=== PATIENT | female | born 1980 | race Caucasian/White ===

== ENCOUNTER 2017-10-05 13:09 | Inpatient (IN) | payer OTHER ==
[~2017-10-05] VITALS: Ht 172.7 cm; Wt 81.0 kg
[2017-10-05] VITALS (90 sets, daily range): BP systolic 104–152; BP diastolic 66–89; PULSE 47–116; RESP 18–20; TEMP 97.9–98.9
[2017-10-05] MEDS ORDERED: LACTATED RINGER'S 1000 ML INJ 1,000 ML IV SCH (13:39)
[2017-10-05] MEDS ORDERED: LACTATED RINGER'S 1000 ML INJ 1,000 ML IV PRN (13:39)
[2017-10-05] MEDS ORDERED: LIDOCAINE HCL 1% 50 ML VIAL INFIL PRN (13:45)
[2017-10-05] MEDS ORDERED: MINERAL OIL 10 ML VIAL TOPICAL PRN (13:45)
[2017-10-05] MEDS ORDERED: OXYTOCIN 30 UNITS-500ML PREMIX 500 ML IV ONE (13:45)
[2017-10-05] MEDS ORDERED: SODIUM CHLORID 0.9% 500 ML INJ 500 ML IV PRN (13:45)
[2017-10-05] MEDS ORDERED: OXYTOCIN 30 UNITS-500ML PREMIX 500 ML IV SCH ×2 (13:45→20:45)
[2017-10-05] MEDS ORDERED: LIDOCAINE HCL 1% 50 ML VIAL I-DERMAL PRN (13:45)
[2017-10-05] MEDS ORDERED: SODIUM CHLOR 0.9% 1000 ML INJ 1,000 ML IV PRN (13:59)
[2017-10-05] MEDS ORDERED: PENICILLIN G POTASSIUM INJ 5,000,000 UNITS in SODIUM CHLORIDE 0.9% INJ 100 ML IV ONE (14:00)
[2017-10-05 14:22] LABS: BACTERIA, URINE RARE /hpf; BILIRUBIN, URINE NEG (NEG); BLOOD, URINE SMALL (NEG); GLUCOSE,URINE NEG (NEG); KETONE, URINE NEG (NEG); MUCUS URINE FEW /lpf (OCC); NITRITE,URINE NEG (NEG); PH, URINE 6.5 (5.0-8.5); SQUAMOUS EPITHELIAL CELL URINE 2 /hpf (0-5); URINE COLOR YELLOW (YELLW/STRAW); URINE LEUKOCYTE ESTERASE NEG (NEG)
--- NOTE | 2017-10-05 14:22 | HHI.HP ---
HPI Chief Complaint labor Date Seen: Oct 05, 2017 Travel History International Travel<30 Days: No Contact w/Intl Traveler<30Days: No Known Affected Area: No History of Present Illness HPI 37 yo with iup at 38w6 d being admitted for labor. SVE in office today /-2 with bbow. She was 2 cm last week. She is having irreg ctx. + FM. Neg vb or lof. Weeks Gestation: 38 Para: 2 : 3 History Past Medical History Narrative Medical HPV + Obstetric History Obstetric History G1 07/2005 M 42 wk, 9lb 7oz G2 02/2009 41 F wk, 7lb 10 oz Both pregnancies uncomplicated Past Surgical History Narrative Surgical breast augmentation Family History Family History: Negative Social History Alcohol Use: No Tobacco Use: No Substance Abuse: No Allergies-Medications (Allergen,Severity, Reaction): Coded Allergies: No Known Allergies (Verified Allergy, Unknown, 10/05/17) Review of Systems General / Constitutional: No: Fever, Weight Gain, Chills, Other Eyes: No: Diploplia, Blurred Vision, Visual changes, Pain, Photophobia HENT: No: Headaches, Vertigo, Lightheadedness Cardiovascular: No: Irregular Rhythm, Chest Pain or Discomfort, Palpitations, Tachycardia, Syncope, Varicosities, Edema, Cyanosis Respiratory: No: Cough, Short of Breath, Other Gastrointestinal: No: Nausea, Vomiting, Diarrhea Genitourinary: No: Decreased Urinary Output, Oliguria Musculoskeletal: No: Limited ROM, Weakness, Cramping, Edema, Pain Skin: No Rash, No Itching, No Dryness, No Lumps, No Change in Pigmentation, No Change in Nails, No Alopecia, No Lesions Neurologic: No: Weakness, Dizziness, Syncope, Focal Abnormalities, Coordination Problem, Headache, Slurred Speech, Seizures Psychiatric: No: Depression, Suicidal Ideations, Homicidal Ideation Endocrine: No: Heat Intolerance, Cold Intolerance, Polydipsia, Polyuria, Other Physical Exam Vital Signs Date Time Temp Pulse Resp B/P (MAP) Pulse Ox O2 Delivery O2 Flow Rate FiO2 10/05/17 13:45 75 10/05/17 13:40 74 10/05/17 13:39 73 134/83 (100) Narrative GENERAL: Well-nourished, well-developed patient. SKIN: Warm and dry. HEAD: Normocephalic and atraumatic. EYES: No scleral icterus. No injection or drainage. ENT: No nasal drainage noted. Mucous membranes pink. Airway patent. NECK: Supple, trachea midline. No JVD. CARDIOVASCULAR: Regular rate and rhythm without murmurs, gallops, or rubs. RESPIRATORY: Breath sounds equal bilaterally. No accessory muscle use.. ABDOMEN/GI: Abdomen soft, non-tender, bowel sounds present, no rebound, no guarding Gravid to 37 weeks size Fundal Height: [-] GENITOURINARY: External Genitalia: intact and normal in appearance BUS glands: [-] Cervix:4/80/-2 bbow] Presentation:[facility] Membranes: [intact Uterine Contractions: [-] FHT's: Category:I EXTREMITIES: No cyanosis or edema. BACK: Nontender without obvious deformity. No CVA tenderness. NEUROLOGICAL: Awake and alert. Motor and sensory grossly within normal limits. Five out of 5 muscle strength in all muscle groups. Normal speech. Caprini VTE Risk Assessment Caprini VTE Risk Assessment: No/Low Risk (score <= 1) Caprini Risk Assessment Model Point Value = 1 Point Value = 2 Point Value = 3 Point Value = 5 Age 41-60 Minor surgery BMI > 25 kg/m2 Swollen legs Varicose veins or History of unexplained or recurrent spontaneous Oral contraceptives or hormone replacement Sepsis (< 1 month) Serious lung disease, including pneumonia (< 1 month) Abnormal pulmonary function Acute myocardial infarction Congestive heart failure (< 1 month) History of inflammatory bowel disease Medical patient at bed rest Age 61-74 Arthroscopic surgery Major open surgery (> 45 min) Laparoscopic surgery (> 45 min) Malignancy Confined to bed (> 72 hours) Immobilizing plaster cast Central venous access Age >= 75 History of VTE Family history of VTE Factor V Leiden Prothrombin [id number] Lupus anticoagulant Anticardiolipin antibodies Elevated serum homocysteine Heparin-induced thrombocytopenia Other congenital or acquired thrombophilia Stroke (< 1 month) Elective arthroplasty Hip, pelvis, or leg fracture Acute spinal cord injury (< 1 month) Prophylaxis Regimen Total Risk Factor Score Risk Level Prophylaxis Regimen 0-1 Low Early ambulation 2 Moderate Order ONE of the following: *Sequential Compression Device (SCD) *Heparin 5000 units SQ BID 3-4 Higher Order ONE of the following medications: *Heparin 5000 units SQ TID *Enoxaparin/Lovenox 40 mg SQ daily (WT < 150 kg, CrCl > 30 mL/min) *Enoxaparin/Lovenox 30 mg SQ daily (WT < 150 kg, CrCl > 10-29 mL/min) *Enoxaparin/Lovenox 30 mg SQ BID (WT < 150 kg, CrCl > 30 mL/min) AND/OR *Sequential Compression Device (SCD) 5 or more Highest Order ONE of the following medications: *Heparin 5000 units SQ TID (Preferred with Epidurals) *Enoxaparin/Lovenox 40 mg SQ daily (WT < 150 kg, CrCl > 30 mL/min) *Enoxaparin/Lovenox 30 mg SQ daily (WT < 150 kg, CrCl > 10-29 mL/min) *Enoxaparin/Lovenox 30 mg SQ BID (WT < 150 kg, CrCl > 30 mL/min) AND *Sequential Compression Device (SCD) Data Data Vital Signs Reviewed: Yes Orders Orders Admit To Inpatient (10/05/17 ) Vital Signs (Adult) .Per protocol (10/05/17 13:39) Heart (10/05/17 13:39) Amnioinfusion (10/05/17 13:39) Urinary Catheter Management .ONCE (10/05/17 13:39) Lactated Ringer's 1000 Ml Inj (Lr 1000 M (10/05/17 13:39) Lactated Ringer's 1000 Ml Inj (Lr 1000 M (10/05/17 13:39) Sodium Chlorid 0.9% 500 Ml Inj (Ns 500 M (10/05/17 13:45) Sodium Chlor 0.9% 1000 Ml Inj (Ns 1000 M (10/05/17 13:59) Lidocaine 1% Inj (50 Ml) (Xylocaine 1% I (10/05/17 13:45) Fentanyl Inj (Fentanyl Inj) (10/05/17 13:45) Fentanyl Inj (Fentanyl Inj) (10/05/17 13:45) Penicillin G Potassium Inj (Pfizerpen-G (10/05/17 14:00) Complete Blood Count With Diff (10/05/17 13:39) Hold Clot (10/05/17 13:39) Abo/Rh Blood Type (10/05/17 13:39) Urinalysis - C+S If Indicated (10/05/17 13:39) Drug Screen, Random Urine (10/05/17 13:39) Resp Oxygen Non Rebreathe Mask (10/05/17 ) ^ Epidural / Intrathecal Infus (10/05/17 13:39) Oxytocin 30 Units-500ml Premix (Pitocin (10/05/17 13:45) Lidocaine 1% Inj (50 Ml) (Xylocaine 1% I (10/05/17 13:45) Light Mineral Oil (Muri-Lube Oil) (10/05/17 13:45) Inpatient Certification (10/05/17 ) Specimen To Be Collected PRN (10/05/17 13:39) Specimen To Be Collected PRN (10/05/17 13:39) ^ Non Stress Test (10/05/17 13:39) Response To Medication .Post New Med Administration, Reaction (10/05/17 13:39) ^ Discontinue Medication (10/05/17 13:39) Oxytocin 30 Units-500ml Premix (Pitocin (10/05/17 13:45) Penicillin G Potassium Inj (Pfizerpen-G (10/05/17 18:00) Group B Strep: Positive Assessment/Plan Problem List: (1) Labor and delivery indication for care or intervention ICD Codes: O75.9 - Complication of labor and delivery, unspecified (2) AMA (advanced maternal age) multigravida 35+ ICD Codes: O09.529 - Supervision of elderly multigravida, unspecified trimester (3) GBS (group B Streptococcus carrier), +RV culture, currently ICD Codes: O99.820 - Streptococcus B carrier state complicating Assessment and Plan 37 yo with iup at 38w6d being admitted for augmentation of labor 1)labor - will augment with pit/arom as needed 2) GBS + pnc prophy 3) AMA- neg cfDNA, msAFP and anatomy u/s 4) Fetus- ceph, male, EFW 7.5-8 lb Deisi Boucher MD Oct 05, 2017 14:22
[2017-10-05 14:24] LABS: AUTOMATED NEUTROPHIL # 8.3 TH/MM3 (1.8-7.7); BASOPHIL % 0.2 % (0.0-2.0); EOSINOPHIL % 0.1 % (0.0-4.0); HEMATOCRIT 36.5 % (35.0-46.0); HEMOGLOBIN 12.7 GM/DL (11.6-15.3); MEAN CORPUSCULAR HEMOGLOBIN 32.3 PG (27.0-34.0); MEAN CORPUSCULAR HGB CONC 34.7 % (32.0-36.0); MEAN PLATELET VOLUME 9.8 FL (7.0-11.0); MONO % 5.8 % (0.0-8.0); MONOCYTE # 0.6 TH/MM3 (0-0.9); NEUT % 75.9 % (16.0-70.0); PLATELET COUNT 196 TH/MM3 (150-450); RED BLOOD COUNT 3.92 MIL/MM3 (4.00-5.30); RED CELL DISTRIBUTION WIDTH 13.1 % (11.6-17.2); WHITE BLOOD COUNT 10.9 TH/MM3 (4.0-11.0)
[2017-10-05] MEDS ORDERED: fentaNYL 2MCG-BUPIV 0.125% INJ 100 ML ONE (14:54)
[2017-10-05] MEDS ORDERED: ePHEDrine/NS 25 MG/5 ML SYRINGE ONE (14:55)
[2017-10-05] MEDS ORDERED: PREN29TA PO (15:59)
[2017-10-05] MEDS ORDERED: DIPHTH/TETANUS/ACEL PERTUSSIS (BOOSTER) 0.5 ML VIAL/PFS IM ONE (16:00)
[2017-10-05] MEDS ORDERED: DO NOT ADMINISTER ANTICOAGULANTS PRN (16:00)
[2017-10-05] MEDS ORDERED: fentaNYL 2MCG-BUPIV 0.125% 100 ML EPIDURAL SCH (16:00)
[2017-10-05] MEDS ORDERED: NO SYSTEM NARCOTICS PRN (16:00)
[2017-10-05] MEDS ORDERED: ePHEDrine/NS 25 MG/5 ML SYRINGE IV PUSH PRN (16:00)
[2017-10-05] MEDS ORDERED: MEASLES, MUMPS, RUBELLA VACCINE 0.5 ML VIAL SQ ONE (16:00)
[2017-10-05] MEDS ORDERED: ONDANSETRON HCL 4 MG/2 ML VIAL ONE (16:25)
[2017-10-05] MEDS ORDERED: ONDANSETRON HCL 4 MG/2 ML VIAL IV PUSH PRN (17:00)
[2017-10-05] MEDS ORDERED: PENICILLIN G POTASSIUM INJ 2,500,000 UNITS in SODIUM CHLORIDE 0.9% INJ 100 ML IV SCH (18:00)
--- NOTE | 2017-10-05 20:39 | PD.OB.DELI ---
Weeks gestation: 38 Gest age assessed date: Oct 05, 2017 Gest age assessed time: 11:30 Pt started active labor?: Yes Active labor start date: Oct 05, 2017 Active labor start time: 15:00 Medical induction of labor?: Yes Medical induction start date: Oct 05, 2017 Medical induction start time: 14:00 Artificial rupture of membrane: Yes Artificial ROM date: Oct 05, 2017 Artifical ROM time: 15:00 Anesthesia: Epidural Episiotomy: None Vaginal Delivery: Normal Presentation: Occiput anterior Nuchal Cord: None Delayed cord clamping (45 sec): Yes Infant: Male Delivery date: Oct 05, 2017 Delivery time: 20:22 One Minute : 8 Five Minute : 9 Placenta: Spontaneous delivery Laceration: No lacerations Estimated blood loss: 200 Anibal Martinez MD Oct 05, 2017 20:39
[2017-10-05] MEDS ORDERED: WITCH HAZEL 50%/GLYCERIN 12.5% 40 PAD JAR TOPICAL PRN (20:45)
[2017-10-05] MEDS ORDERED: SODIUM CHLORIDE 0.9% FLUSH 10 ML FLUSH IV FLUSH PRN (20:45)
[2017-10-05] MEDS ORDERED: DOCUSATE SODIUM 50 MG/SENNA 8.6 MG TAB PO PRN (20:45)
[2017-10-05] MEDS ORDERED: BENZOCAINE 20% TOPICAL SPRAY 60 ML CAN TOPICAL PRN (20:45)
[2017-10-05] MEDS ORDERED: ONDANSETRON ODT 4 MG TAB PO PRN (20:45)
[2017-10-05] MEDS ORDERED: ALUMINUM/MAGNESIUM/SIMETH 30 ML CUP PO PRN (20:45)
[2017-10-05] MEDS ORDERED: OXYTOCIN 10 UNIT/ML AMP XX PRN (20:45)
[2017-10-05] MEDS ORDERED: ZOLPIDEM TARTRATE 5 MG TAB PO PRN (20:45)
[2017-10-05] MEDS ORDERED: ACETAMINOPHEN 325 MG TAB PO PRN (20:45)
[2017-10-05] MEDS: SODIUM CHLORIDE 0.9% FLUSH 10 ML FLUSH IV FLUSH SCH (21:35)
[2017-10-06] MEDS: IBUPROFEN 800 MG TAB PO PRN ×3 (00:18→18:16)
--- NOTE | 2017-10-06 07:40 | HHI.OB ---
Subjective Post Day: 1 Remarks doing well, TPO no n/v, VB < menses, ready for d/c later today Objective Vitals/I&O Vital Signs Date Time Temp Pulse Resp B/P (MAP) Pulse Ox O2 Delivery O2 Flow Rate FiO2 10/05/17 22:30 98.9 52 20 126/75 (92) 10/05/17 21:16 47 129/74 (92) 10/05/17 21:04 18 10/05/17 21:03 97.9 10/05/17 21:01 56 137/82 (100) 10/05/17 21:00 18 10/05/17 20:45 65 18 127/79 (95) 10/05/17 20:30 69 133/72 (92) 10/05/17 20:28 18 10/05/17 20:27 76 124/66 (85) 10/05/17 20:15 70 10/05/17 20:10 76 10/05/17 20:05 62 10/05/17 20:00 63 10/05/17 20:00 63 10/05/17 19:55 65 10/05/17 19:50 64 10/05/17 19:45 73 10/05/17 19:40 64 10/05/17 19:35 60 10/05/17 19:30 63 10/05/17 19:30 61 127/84 (98) 10/05/17 19:25 60 10/05/17 19:20 64 10/05/17 19:15 65 10/05/17 19:10 65 10/05/17 19:05 64 10/05/17 19:00 61 128/81 (97) 10/05/17 19:00 63 10/05/17 18:55 58 10/05/17 18:50 60 10/05/17 18:45 61 10/05/17 18:43 98.1 18 10/05/17 18:40 87 10/05/17 18:35 62 10/05/17 18:31 58 121/86 (98) 10/05/17 18:30 65 10/05/17 18:10 61 10/05/17 18:05 57 10/05/17 18:00 56 10/05/17 18:00 52 131/82 (98) 10/05/17 17:31 59 126/81 (96) 10/05/17 17:30 59 10/05/17 17:25 57 10/05/17 17:20 61 10/05/17 17:15 72 10/05/17 17:10 67 10/05/17 17:05 60 10/05/17 17:00 64 121/79 (93) 10/05/17 17:00 55 10/05/17 16:55 63 10/05/17 16:50 56 10/05/17 16:45 63 10/05/17 16:40 61 10/05/17 16:35 57 10/05/17 16:30 65 113/73 (86) 10/05/17 16:30 61 10/05/17 16:25 68 10/05/17 16:20 79 120/68 (85) 10/05/17 16:20 80 10/05/17 16:15 67 125/77 (93) 10/05/17 16:15 63 10/05/17 16:10 67 10/05/17 16:10 68 10/05/17 16:10 124/79 (94) 10/05/17 16:05 60 118/76 (90) 10/05/17 16:05 63 10/05/17 16:00 61 114/74 (87) 10/05/17 16:00 60 10/05/17 15:55 62 117/73 (88) 10/05/17 15:55 59 10/05/17 15:50 60 10/05/17 15:50 63 110/70 (83) 10/05/17 15:45 79 10/05/17 15:45 74 104/68 (80) 10/05/17 15:45 78 10/05/17 15:40 72 10/05/17 15:40 76 10/05/17 15:40 67 104/82 (89) 10/05/17 15:35 72 10/05/17 15:35 66 112/72 (85) 10/05/17 15:35 69 10/05/17 15:31 66 119/71 (87) 10/05/17 15:30 67 10/05/17 15:30 69 10/05/17 15:28 98.5 18 10/05/17 15:25 116 10/05/17 15:25 81 10/05/17 15:25 83 10/05/17 15:21 76 10/05/17 15:21 111/66 (81) 10/05/17 15:20 75 10/05/17 15:20 74 10/05/17 15:16 82 139/80 (99) 10/05/17 15:15 73 10/05/17 15:15 74 10/05/17 15:10 70 128/86 (100) 10/05/17 15:10 76 10/05/17 15:10 74 10/05/17 15:05 73 10/05/17 15:05 73 10/05/17 15:02 77 152/89 (110) 10/05/17 15:00 72 10/05/17 15:00 74 10/05/17 14:55 71 10/05/17 14:54 18 10/05/17 14:50 70 10/05/17 14:40 73 10/05/17 14:35 73 10/05/17 14:30 68 10/05/17 14:25 68 10/05/17 14:20 72 10/05/17 14:15 71 10/05/17 14:10 71 10/05/17 14:05 74 10/05/17 14:00 72 10/05/17 13:55 69 10/05/17 13:50 69 10/05/17 13:45 75 10/05/17 13:40 74 10/05/17 13:39 73 134/83 (100) Objective Remarks GENERAL: Well-nourished, well-developed patient. CARDIOVASCULAR: Regular rate and rhythm without murmurs, gallops, or rubs. RESPIRATORY: Breath sounds equal bilaterally. No accessory muscle use. ABDOMEN/GI: Abdomen soft, non-tender. Fundus: Firm, non-tender at umbilicus. GENITOURINARY: Light to moderate bleeding. EXTREMITIES: No cyanosis or edema, non-tender, without signs of DVT. Medications and IVs Current Medications Medications (Trade) Dose Ordered Sig/Shayne Route Start Time Stop Time Status Last Admin (Pitocin Inj) 20 units UNSCH X1 PRN XX 10/05/17 20:45 10/06/17 20:44 (NS Flush) 2 ml BID IV FLUSH 10/05/17 21:00 10/05/17 21:35 (NS Flush) 2 ml UNSCH PRN IV FLUSH 10/05/17 20:45 (Tylenol) 650 mg Q4H PRN PO 10/05/17 20:45 (Motrin) 800 mg Q8H PRN PO 10/05/17 20:45 10/06/17 00:18 (Americaine 20% Top Spr) 1 spray Q4H PRN TOPICAL 10/05/17 20:45 (Tucks Pads) 1 applic QID PRN TOPICAL 10/05/17 20:45 (Kenna-Colace) 2 tab Q12H PRN PO 10/05/17 20:45 (Ambien) 5 mg HS PRN PO 10/05/17 20:45 (Mag-Al Plus Susp Liq) 15 ml Q8H PRN PO 10/05/17 20:45 (Zofran Odt) 4 mg Q6H PRN PO 10/05/17 20:45 Assessment/Plan Problem List: (1) Labor and delivery indication for care or intervention ICD Codes: O75.9 - Complication of labor and delivery, unspecified (2) AMA (advanced maternal age) multigravida 35+ ICD Codes: O09.529 - Supervision of elderly multigravida, unspecified trimester (3) GBS (group B Streptococcus carrier), +RV culture, currently ICD Codes: O99.820 - Streptococcus B carrier state complicating Assessment and Plan 37 yo s/p @ 36w6d, was augmentation of labor 1) PPD #1: doing well, anticipate d/c home tomorrow, baby needs to stay overnight b/c GBS + status. - Desires circ, consented but persistent vomiting while in restraints prior to circ, will defer to be done tomorrow. 2) Rh neg: rhogam per protocol. Richard Cardoza MD Oct 06, 2017 07:40
--- NOTE | 2017-10-06 07:42 | HHI.DCPOC ---
Discharge Care Plan Diagnosis: (1) Normal vaginal delivery (2) GBS (group B Streptococcus carrier), +RV culture, currently (3) Labor and delivery indication for care or intervention (4) AMA (advanced maternal age) multigravida 35+ Your Health Problems Are: Vaginal delivery Report Symptoms to Your Doctor -Temperature above 100.5 degrees -Redness, of incision or excessive or foul smelling drainage -Unusual pain or calf pain -Increased vaginal bleeding -Painful or difficulty urinating -Feelings of extreme sadness or anxiety after 2 weeks Goals to Promote Your Health * To prevent worsening of your condition and complications * To maintain your health at the optimal level Directions to Meet Your Goals Take your medications as prescribed Follow your dietary instruction Follow activity as directed Ensure plenty of rest for recovery Drink fluids for hydration Keep your appointments as scheduled Take your immunizations and boosters as scheduled If your symptoms worsen call your PCP, if no PCP go to Urgent Care Center or Emergency Room Smoking is Dangerous to Your Health. Avoid second hand smoke Call the 24-hour crisis hotline for domestic abuse at Richard Cardoza MD Oct 06, 2017 07:42
[2017-10-06 08:00] VITALS: BP 118/81; PULSE 55; RESP 18; TEMP 98.1; O2SAT 96
[2017-10-06] MEDS: SODIUM CHLORIDE 0.9% FLUSH 10 ML FLUSH IV FLUSH SCH (09:00)
[2017-10-06 20:00] VITALS: BP 119/76; PULSE 53; RESP 16; TEMP 97.9; O2SAT 97
[2017-10-07] MEDS: IBUPROFEN 800 MG TAB PO PRN (06:18)
--- NOTE | 2017-10-07 07:57 | HHI.OB ---
Subjective Post Day: 2 Remarks doing well Objective Vitals/I&O Vital Signs Date Time Temp Pulse Resp B/P (MAP) Pulse Ox O2 Delivery O2 Flow Rate FiO2 10/06/17 20:00 53 16 119/76 (90) 10/06/17 20:00 97.9 97 10/06/17 08:00 98.1 10/06/17 08:00 55 18 118/81 (93) 96 Objective Remarks GENERAL: Well-nourished, well-developed patient. CARDIOVASCULAR: Regular rate and rhythm without murmurs, gallops, or rubs. RESPIRATORY: Breath sounds equal bilaterally. No accessory muscle use. ABDOMEN/GI: Abdomen soft, non-tender. Fundus: Firm, non-tender at umbilicus. GENITOURINARY: Light to moderate bleeding. EXTREMITIES: No cyanosis or edema, non-tender, without signs of DVT. Medications and IVs Current Medications Medications (Trade) Dose Ordered Sig/Shayne Route Start Time Stop Time Status Last Admin (NS Flush) 2 ml BID IV FLUSH 10/05/17 21:00 10/05/17 21:35 (NS Flush) 2 ml UNSCH PRN IV FLUSH 10/05/17 20:45 (Tylenol) 650 mg Q4H PRN PO 10/05/17 20:45 (Motrin) 800 mg Q8H PRN PO 10/05/17 20:45 10/07/17 06:18 (Americaine 20% Top Spr) 1 spray Q4H PRN TOPICAL 10/05/17 20:45 (Tucks Pads) 1 applic QID PRN TOPICAL 10/05/17 20:45 (Kenna-Colace) 2 tab Q12H PRN PO 10/05/17 20:45 (Ambien) 5 mg HS PRN PO 10/05/17 20:45 (Mag-Al Plus Susp Liq) 15 ml Q8H PRN PO 10/05/17 20:45 (Zofran Odt) 4 mg Q6H PRN PO 10/05/17 20:45 Assessment/Plan Problem List: (1) Labor and delivery indication for care or intervention ICD Codes: O75.9 - Complication of labor and delivery, unspecified (2) AMA (advanced maternal age) multigravida 35+ ICD Codes: O09.529 - Supervision of elderly multigravida, unspecified trimester (3) GBS (group B Streptococcus carrier), +RV culture, currently ICD Codes: O99.820 - Streptococcus B carrier state complicating Assessment and Plan 37 yo s/p @ 36w6d, was augmentation of labor 1) PPD #2: doing well, anticipate d/c home 2) Rh neg: rhogam per protocol. Deisi Boucher MD Oct 07, 2017 07:57
[2017-10-07 09:00] VITALS: BP 110/64; PULSE 67; RESP 18; TEMP 98.5
[2017-10-07] MEDS ORDERED: IBUP1TAB7 PO (09:02)
== END 2017-10-07 14:10 | disposition home or self-care (01) | DRG 775 ==
LOC: H2EB 13:09 → H1EA 22:21
PROVIDERS: ADMIT Obstetrics & Gynecology; ATTEND Obstetrics & Gynecology
PROC: 10E0XZZ Delivery of Products of Conception, External Approach (ICD-10-PCS; principal; 2017-10-05)
PROC: 3E0R3BZ Introduction of Anesthetic Agent into Spinal Canal, Percutaneous Approach (ICD-10-PCS; 2017-10-05)
PROC: 00HU33Z Insertion of Infusion Device into Spinal Canal, Percutaneous Approach (ICD-10-PCS; 2017-10-05)
DX: O99.824 Streptococcus B carrier state complicating childbirth (principal); Z3A.38 38 weeks gestation of pregnancy
CPT/HCPCS: 59025; 80307; 81001; 85025; 85461; 86850; 86900; 86901; 90384; J2405; J2540; J2590; J2790; J7120